=== PATIENT | female | born 1970 ===

== ENCOUNTER 2025-02-27 17:47 | Emergency (ER) | payer MEDICAID, OTHER ==
[2025-02-27] MEDS: hydrOXYzine HCl 25 MG Tab PO ONE (18:31)
== END 2025-02-27 19:00 | disposition left against medical advice (07) ==
LOC: DL.ED 17:47
DX: Z53.21 Procedure and treatment not carried out due to patient leaving prior to being seen by health care provider (principal)
CPT/HCPCS: 82947; A9270